=== PATIENT | male | born 1960 | race Caucasian/White ===

== ENCOUNTER → 2016-03-09 | Outpatient (CLI) | payer BC ==
[2016-03-09 12:23] LABS: Appearance,Urine Clear (Clear); Bilirubin,Urine Negative (Negative); Glucose,Urine (UA) Negative (Negative); Ketones,Urine Negative (Negative); Leukocyte Esterase,Urine Negative (Negative); Nitrite,Urine Negative (Negative); PH, Urine 6.5 (5.0-8.0); Protein,Urine Negative (Negative); Specific Gravity,Urine 1.011 (1.001-1.035); UA Billing (MACRO vs. MICRO) CHEM; Urobilinogen,Urine <2.0 mg/dL (<2.0)
[2016-03-10 07:55] LABS: HIV-1/HIV-2 Ab Screen NONREAC (NON REAC)
[2016-03-15 01:30] LABS: Bartonella henselae Ab, IgG <1:64; Bartonella henselae Ab, IgM < 1:16
[2016-03-19 16:11] LABS: Mis test requested (Blood) Q Fever GMA Ab
== END | disposition home or self-care (01) ==
LOC: LABWHC1 11:34
PROVIDERS: ATTEND Internal Medicine Infectious Disease
DX: I33.0 Acute and subacute infective endocarditis (principal)
CPT/HCPCS: 36415; 81003; 85652; 86038; 86431; 86611; 86638; 87040; 87086; 87389

== ENCOUNTER → 2016-03-12 | Outpatient (CLI) | payer BC | END | disposition home or self-care (01) | LOC: LABWHC1 07:39 | PROVIDERS: ATTEND Internal Medicine Infectious Disease | DX: I33.0 Acute and subacute infective endocarditis (principal) | CPT/HCPCS: 36415; 87040 ==

== ENCOUNTER 2016-03-19 11:05 | Day surgery (SDC) | payer BC ==
[2016-03-16 10:43] VITALS: BMI 23.1
[2016-03-19 11:24] VITALS: PULSE 60; RESP 18; TEMP 98.5
[2016-03-19] MEDS ORDERED: SODIUM CHLORIDE 0.9% 250 ML IV ONE (11:24)
[2016-03-19 11:29] LABS: Basophils % (A) 1 %; CH 31.2; CHCM 33.4; Eosinophils # (A) 0.1 k/uL (0-0.7); Eosinophils % (A) 1 %; HCT 43.6 % (39.0-53.0); HDW 2.85; HGB 14.4 gm/dL (13.0-17.5); Luc # (Auto) 0.13; Luc % (Auto) 4; Lymphocytes % (A) 28 %; MCV 93.8 fL (80.0-100.0); Mean Platelet Volume 7.5; Monocytes # (A) 0.2 k/uL (0-1.0); Monocytes % (A) 6 %; Neutrophils # (A) 2.1 k/uL (1.3-7.7); Neutrophils % (A) 60 %; RBC 4.65 m/uL (4.30-5.90); RDW 13.7 % (11.5-15.5); WBC 3.5 k/uL (3.8-10.6); WBC (Perox) 3.72
[2016-03-19] MEDS ORDERED: MIDAZOLAM 2 MG/2 ML VIAL ONE (11:38)
[2016-03-19] MEDS ORDERED: fentaNYL (PF) 50 MCG/ML 2 ML AMP ONE (11:38)
[2016-03-19] MEDS ORDERED: BENZOCAINE SPRAY 100 APPLIC/CAN MUCOUS MEM ONE ×2 (11:44→11:54)
[2016-03-19] MEDS ORDERED: fentaNYL (PF) 50 MCG/ML 2 ML AMP IV ONE (11:53)
[2016-03-19] MEDS ORDERED: MIDAZOLAM 2 MG/2 ML VIAL IVP ONE (11:54)
[2016-03-19] MEDS: MIDAZOLAM 2 MG/2 ML VIAL IVP ONE ×2 (11:59→12:29)
[2016-03-19] MEDS ORDERED: PROPOFOL 10 MG/ML 20 ML VIAL IV ONE (12:16)
[2016-03-19] MEDS ORDERED: LIDOCAINE 1% INJ 10MG/ML (20 ML MDV) ONE (12:16)
--- NOTE | 2016-03-19 13:10 | ECHOT ---
DATE OF SERVICE: 03/19/2016 PERFORMING PHYSICIAN: Hermilo Drummond, [employer]. INDICATION OF THE STUDY: This is a pleasant 55-year-old gentleman who was seen by Dr. Filemon Aguero for endocarditis. The ALEXSANDRA is to rule out endocarditis. COMPLICATIONS: None. LEVEL OF SEDATION: Initially we tried conscious sedation, but the patient continues to be awake, so we did the procedure under general anesthesia. PROCEDURE DESCRIPTION: After obtaining an informed consent, the patient was brought to the transesophageal echocardiogram suite. Pulse oximetry and heart rate monitor were attached to the patient. The patient was turned into left lateral position. Subsequently, we gave the patient a total of 4 mg of versed and the patient continues to be not well sedated. I had the transesophageal echocardiogram probe brought to the esophagus but the patient was breathing heavily, so we have to abort the conscious sedation and do a general anesthesia. At that point, general anesthesia was called and the patient was given propofol. Subsequently, I did advance the transesophageal echocardiogram probe to the midesophagus where a 2-D echocardiogram images as well as color Doppler images of various cardiac structures were obtained. FINDING: The left ventricular dimension and systolic function appeared to be within normal limits. The ejection fraction seems about 55%. The right ventricle is of normal size and function. The left atrium and right atrium dimension are within normal limits. The left atrial appendage appeared to be free from any thrombus. The interatrial septum appeared to be intact by color flow Doppler. The aortic valve is trileaflet valve without stenosis or regurgitation. The mitral valve seems to be mildly thickened with mild regurgitation. The tricuspid valve and pulmonic valve both are structurally normal. There is no evidence of pericardial effusion identified. CONCLUSION: 1. There is no evidence of endocarditis. 2. Normal intracardiac valves. 3. Normal left ventricular dimension and systolic function. 4. Normal cardiac chamber sizes. 5. Normal aortic root dimension. 6. No evidence of pericardial effusion.
[2016-03-19 14:52] VITALS: BP 127/84
== END 2016-03-19 14:00 | disposition home or self-care (01) ==
LOC: CATHCVL 11:05
PROVIDERS: ATTEND Internal Medicine Interventional Cardiology
DX: Z03.89 Encounter for observation for other suspected diseases and conditions ruled out (principal)
CPT/HCPCS: 93312; 93320; 93325; 85025; J2250; J2001; J3010; J2704